=== PATIENT | male | born 1960 | race African-American/Black ===

== ENCOUNTER 2022-12-03 07:55 | Inpatient (IN) | payer MEDICAID ==
[~2022-12-03] VITALS: Ht 182.9 cm; Wt 162.4 kg
[2022-12-03] MEDS ORDERED: DIPHENHYDRAMINE 50MG/ML VIAL IM NR (10:00)
[2022-12-03] MEDS ORDERED: HALOPERIDOL LACTATE 5MG/ML VIAL IM NR (10:00)
[2022-12-03 12:50] LABS: BASOPHILS % 0.3 % (0.0-2.0); EOSINOPHILS % 2.3 % (0.0-5.0); HEMATOCRIT. 36.4 % (42.0-52.0); HEMOGLOBIN. 11.9 g/dL (14.0-18.0); LYMPHOCYTES % 16.3 % (20.0-50.0); MEAN CORPUSCULAR HEMOGLOBIN 29.4 pg (28.0-32.0); MEAN CORPUSCULAR VOLUME 89.7 fL (80.0-94.0); MEAN PLATELET VOLUME 7.5 fl (7.4-10.4); MONOCYTES % 7.3 % (2.0-8.0); NEUTROPHILS % 73.8 % (40.0-76.0); PLATELET 290 x1000/uL (130-400); RED BLOOD CELL COUNT 4.05 mill/uL (4.7-6.1); RED CELL DISTRIBUTION WIDTH 14.4 % (11.6-14.6)
[2022-12-03 12:51] LABS: CHLORIDE 111 mEq/L (98-107)
[2022-12-03 12:55] LABS: CLARITY URINE CLOUDY (CLEAR); COLOR URINE YELLOW (YELLOW); KETONES URINE 2+ (NEGATIVE); LEUKOCYTE ESTERASE URINE 2+ (NEGATIVE); NITRITE URINE POSITIVE (NEGATIVE); OCCULT BLOOD URINE TRACE (NEGATIVE); PROTEIN URINE TRACE (NEGATIVE); SPECIFIC GRAVITY URINE 1.025 (1.005-1.030)
[2022-12-03 13:02] LABS: ETHANOL BLOOD < 10 mg/dL
[2022-12-03 13:26] LABS: *AMPHETAMINES SCREEN URINE NEGATIVE (NEGATIVE); *BARBITURATES SCREEN URINE NEGATIVE (NEGATIVE); *BENZODIAZEPINES SCREEN URINE PRESUMTIVE POSITIVE (NEGATIVE); *COCAINE SCREEN URINE PRESUMTIVE POSITIVE (NEGATIVE); CANNABINOID URINE SCREEN PRESUMTIVE POSITIVE (NEGATIVE); METHADONE URINE SCREEN NEGATIVE (NEGATIVE); OPIATES URINE SCREEN NEGATIVE (NEGATIVE); PHENCYCLIDINE URINE SCREEN NEGATIVE (NEGATIVE)
[2022-12-03] MEDS ORDERED: POTASSIUM CHLORIDE 20MEQ/PACKET PO NR (16:00)
[2022-12-03] MEDS ORDERED: ALBUMIN HUMAN 25GM/500ML (5%) IV NR (16:00)
[2022-12-03] MEDS ORDERED: CEFTRIAXONE 1GM PREMIX 50 ML IV NR (16:00)
[2022-12-03] MEDS ORDERED: LORAZEPAM 2MG/ML CPJ IM ONE ×2 (16:15→18:00)
[2022-12-03] MEDS ORDERED: HALOPERIDOL LACTATE 5MG/ML VIAL IM ONE ×2 (16:15→18:00)
[2022-12-03] MEDS ORDERED: OLANZAPINE 10 MG/VIAL IM PRN (17:45)
[2022-12-03] MEDS ORDERED: IPRATROPIUM/ALBUTEROL 0.5-3(2.5)MG/3ML NEB HHN PRN (17:45)
[2022-12-03] MEDS ORDERED: ONDANSETRON HCL 4MG/2ML INJ IM PRN (17:45)
[2022-12-03] MEDS ORDERED: MAGNESIUM/ALUMINUM HYDROXIDE/SIMETHICONE 30ML UDC PO PRN (17:45)
[2022-12-03] MEDS ORDERED: LORAZEPAM 2MG/ML CPJ IM PRN ×2 (17:45→18:15)
[2022-12-03] MEDS ORDERED: ACETAMINOPHEN 325MG TABLET PO PRN (17:45)
[2022-12-03] MEDS ORDERED: ZOLPIDEM TARTRATE 5MG TABLET PO PRN (17:45)
[2022-12-03] MEDS ORDERED: CEFTRIAXONE SODIUM 1 G/VIAL IM SCH (18:30)
[2022-12-03] MEDS ORDERED: FOLIC ACID IM SCH (18:45)
[2022-12-03] MEDS ORDERED: SODIUM CHLORIDE 0.9% IM SCH (18:45)
[2022-12-03] MEDS ORDERED: THIAMINE HCL 100 MG/1 ML 2ML VIAL IM SCH ×2 (18:45→19:00)
[2022-12-03] MEDS ORDERED: FOLIC ACID 5 MG/ML IM SCH (19:00)
[2022-12-03 19:17] LABS: CREATINE KINASE 413 IU/L (39-308)
[2022-12-04] VITALS: BP 152/68
[2022-12-04] MEDS: THIAMINE HCL 100 MG/1 ML 2ML VIAL IM SCH ×2 (01:36→14:00)
[2022-12-04] MEDS: ENOXAPARIN 40MG/0.4ML SYR SUBCUT SCH ×3 (01:36→20:29)
[2022-12-04] MEDS: FOLIC ACID 5 MG/ML IM SCH ×2 (01:37→11:15)
[2022-12-04] MEDS: CEFTRIAXONE SODIUM 1 G/VIAL IM SCH (01:37)
[2022-12-04 04:00] VITALS: BP 140/75
[2022-12-04 05:53] LABS: BASOPHILS % 0.4 % (0.0-2.0); EOSINOPHILS % 2.4 % (0.0-5.0); HEMATOCRIT. 35.4 % (42.0-52.0); LYMPHOCYTES % 21.3 % (20.0-50.0); MEAN CORPUSCULAR HEMOGLOBIN 30.3 pg (28.0-32.0); MEAN CORPUSCULAR VOLUME 89.3 fL (80.0-94.0); MEAN PLATELET VOLUME 7.8 fl (7.4-10.4); NEUTROPHILS % 68.9 % (40.0-76.0); PLATELET 261 x1000/uL (130-400); RED BLOOD CELL COUNT 3.97 mill/uL (4.7-6.1)
[2022-12-04 06:04] LABS: CHLORIDE 113 mEq/L (98-107)
[2022-12-04 08:00] VITALS: BP 180/84
[2022-12-04 12:00] VITALS: BP 163/80
[2022-12-04] MEDS: HALOPERIDOL 5MG TABLET PO SCH (17:00)
[2022-12-04 20:00] VITALS: BP 213/94
[2022-12-04] MEDS: BENZTROPINE MESYLATE 1MG TABLET PO SCH (20:28)
[2022-12-04] MEDS: HYDRALAZINE 20MG/ML VIAL IM PRN ×3 (20:50→21:51)
[2022-12-05] VITALS: BP 215/104
[2022-12-05] MEDS ORDERED: HYDRALAZINE 20MG/ML VIAL IV SCH (01:00)
[2022-12-05] MEDS: CEFTRIAXONE SODIUM 1 G/VIAL IM SCH (06:00)
[2022-12-05] MEDS: HYDRALAZINE 20MG/ML VIAL IM SCH ×3 (06:00→21:50)
[2022-12-05] MEDS: ENOXAPARIN 40MG/0.4ML SYR SUBCUT SCH ×2 (09:11→20:55)
[2022-12-05] MEDS: BENZTROPINE MESYLATE 1MG TABLET PO SCH ×2 (09:11→20:58)
[2022-12-05] MEDS: HALOPERIDOL 5MG TABLET PO SCH (09:11)
[2022-12-05] MEDS: AMLODIPINE 5MG TABLET PO SCH ×2 (09:12→20:58)
[2022-12-05] MEDS: THIAMINE HCL 100 MG/1 ML 2ML VIAL IM SCH (09:13)
[2022-12-05] MEDS: FOLIC ACID 5 MG/ML IM SCH (09:13)
[2022-12-05 19:46] LABS: BASOPHILS % 0.4 % (0.0-2.0); EOSINOPHILS % 2.3 % (0.0-5.0); HEMATOCRIT. 36.9 % (42.0-52.0); HEMOGLOBIN. 12.1 g/dL (14.0-18.0); LYMPHOCYTES % 22.7 % (20.0-50.0); MEAN CORPUSCULAR HEMOGLOBIN 29.5 pg (28.0-32.0); MEAN CORPUSCULAR VOLUME 90.1 fL (80.0-94.0); MEAN PLATELET VOLUME 7.2 fl (7.4-10.4); NEUTROPHILS % 70.6 % (40.0-76.0); PLATELET 270 x1000/uL (130-400); RED BLOOD CELL COUNT 4.09 mill/uL (4.7-6.1); RED CELL DISTRIBUTION WIDTH 14.1 % (11.6-14.6)
[2022-12-05 19:47] LABS: CHLORIDE 108 mEq/L (98-107)
[2022-12-05 20:00] VITALS: BP 159/73
[2022-12-05] MEDS: ACETAMINOPHEN 325MG TABLET PO PRN (20:54)
[2022-12-06] VITALS: BP 135/53
[2022-12-06] MEDS: CEFTRIAXONE SODIUM 1 G/VIAL IM SCH (05:30)
[2022-12-06] MEDS: HYDRALAZINE 20MG/ML VIAL IM SCH (05:30)
[2022-12-06 08:00] VITALS: BP 128/82
[2022-12-06] MEDS: ACETAMINOPHEN 325MG TABLET PO PRN (09:15)
[2022-12-06 12:00] VITALS: BP 128/70
[2022-12-06 15:49] VITALS: BP 128/82
== END 2022-12-06 16:19 | disposition home or self-care (01) | DRG 52 ==
LOC: ER 08:12 → 7EST 22:34 → EDBD 22:34 → EDBEDREQTM 22:52 → EDBEDREQ 22:52 → ENRESERV 23:15 → 6WST 12-05 16:35
PROVIDERS: ADMIT Internal Medicine; ATTEND Internal Medicine
DX: G92.8 Other toxic encephalopathy (principal); E44.0 Moderate protein-calorie malnutrition; I11.9 Hypertensive heart disease without heart failure; D64.9 Anemia, unspecified; F10.129 Alcohol abuse with intoxication, unspecified; I16.1 Hypertensive emergency; N39.0 Urinary tract infection, site not specified; E87.6 Hypokalemia; F39 Unspecified mood [affective] disorder; Z68.42 Body mass index [BMI] 45.0-49.9, adult; Z79.899 Other long term (current) drug therapy; Z59.00 Homelessness unspecified; Z91.199 Patient's noncompliance with other medical treatment and regimen due to unspecified reason
CPT/HCPCS: 36415; 71045; 80048; 80053; 80305; 80320; 81003; 82550; 83605; 83880; 84145; 84484; 85025; 87077; 87186; 93005; 99285; A6261; J0360; J0696; J1200; J1630; J1650; J2060; J3411; J3490; P9041; G0480